=== PATIENT | female | born 1945 | race Caucasian/White ===

== ENCOUNTER 2022-08-18 16:32 | Observation (INO) | payer MEDICARE ==
[2022-08-18 20:05] VITALS: BMI 35.9
[2022-08-18] MEDS ORDERED: Dextrose 5% in Water 1,000 ML IV PRN (21:48)
[2022-08-18] MEDS ORDERED: Dextrose 50% Abboject 50 ML SYRINGE SLOW IVP PRN (21:48)
[2022-08-18] MEDS ORDERED: Acetaminophen 325 MG TAB PO PRN (21:49)
[2022-08-18] MEDS ORDERED: Ondansetron ODT 4 MG TAB PO PRN (21:49)
[2022-08-18] MEDS ORDERED: Ondansetron PF 4 MG/2 ML Vial IVP PRN (21:49)
[2022-08-18] MEDS ORDERED: HumaLOG 300 UNITS/3 ML VIAL SC PRN ×2 (21:53)
[2022-08-18] MEDS ORDERED: Morphine 2 MG/ML VIAL SLOW IVP PRN (21:53)
[2022-08-18] MEDS ORDERED: Nitroglycerin 4.9 GM Bottle SL PRN (21:53)
[2022-08-18] MEDS ORDERED: metFORMIN 500 MG TAB PO SCH (23:45)
[2022-08-19 04:57] LABS: #Basophils 0.1 thou/uL (0.0-0.2); #Eosinphils 0.2 thou/uL (0.0-0.7); #Neutrophils 4.3 thou/uL (1.40-6.50); %Basophils 0.7 % (0.0-1.0); %Eosinophils 2.1 % (0.0-10.0); %Lymphocytes 31.5 % (21.0-51.0); %Monocytes 12.3 % (0.0-10.0); %Neutrophils 53.2 % (42.0-75.0); Hemoglobin 13.5 g/dL (12.0-16.0); Mean Corpuscular HGB CONC 31.5 g/dL (32.0-36.0); Mean Corpuscular Hemoglobin 28.5 pg (27.0-31.0); Mean Corpuscular Volume 90.5 fl (78.0-98.0); Mean Platelet Volume 9.6 fL (7.4-10.4); Platelet Count 243 10x3/uL (130-400); RBC Distribution Width 13.1 % (11.5-14.5); Red Blood Cell (RBC) Count 4.73 mill/uL (4.20-5.40); White Blood Cell (WBC) Count 8.1 10x3/uL (4.8-10.8)
[2022-08-19 05:02] LABS: Hemoglobin A1c 6.8 % (4.0-6.0)
[2022-08-19 05:20] LABS: ALT (SGPT) 11 U/L (8-55); AST (SGOT) 14 U/L (5-34); Albumin 3.7 g/dL (3.4-4.8); Alkaline Phosphatase 61 U/L (40-110); Anion Gap 11 mmol/L (10-20); BUN (Urea Nitrogen) 15 mg/dL (9.8-20.1); Bilirubin, Total 0.4 mg/dL (0.2-1.2); Calc. Creatinine Clearance 84 mL/min (70-130); Calcium 8.7 mg/dL (7.8-10.44); Carbon Dioxide 26 mmol/L (23-31); Cardiac Risk 3.8 (Less than 4.5); Chloride 109 mmol/L (98-107); Cholesterol 173 mg/dl (< 200 Desired); Estimated GFR 76; Globulin 2.3 g/dL (2.4-3.5); Glucose 114 mg/dL (83-110); HDL Cholesterol 46 mg/dL (>60 Neg Risk); LDL Cholesterol, Calculated 94 mg/dL; Potassium 4.2 mmol/L (3.5-5.1); Sodium 142 mmol/L (136-145); Triglycerides 164 mg/dL (Less than 150)
[2022-08-19] MEDS ORDERED: Lisinopril 20 MG TAB PO SCH (09:00)
[2022-08-19] MEDS ORDERED: metFORMIN 500 MG TAB PO SCH ×2 (09:00)
[2022-08-19] MEDS ORDERED: Empagliflozin 10 MG TAB PO SCH (09:00)
[2022-08-19] MEDS ORDERED: Atorvastatin Calcium 20 MG TAB PO SCH (09:00)
[2022-08-19] MEDS ORDERED: Atorvastatin Calcium 10 MG TAB PO SCH ×2 (09:00)
[2022-08-19] MEDS ORDERED: ADENOSINE 60 MG/20 ML SDV ONE (09:44)
[2022-08-19 16:37] VITALS: BP 120/64; TEMP 98.1
[2022-08-19] MEDS ORDERED: HumuLIN 70/30 100 Unit/ ml Vial SC SCH (17:00)
== END 2022-08-19 18:54 | disposition home or self-care (01) ==
LOC: NEURO 18:45
PROVIDERS: ADMIT Emergency Medicine; ATTEND Emergency Medicine
DX: R07.89 Other chest pain (principal); E11.9 Type 2 diabetes mellitus without complications; I10 Essential (primary) hypertension; E78.5 Hyperlipidemia, unspecified; G47.33 Obstructive sleep apnea (adult) (pediatric); Z85.3 Personal history of malignant neoplasm of breast; Z87.891 Personal history of nicotine dependence; Z79.4 Long term (current) use of insulin; Z79.84 Long term (current) use of oral hypoglycemic drugs; Z79.899 Other long term (current) drug therapy; Z88.1 Allergy status to other antibiotic agents; Z88.2 Allergy status to sulfonamides
CPT/HCPCS: 78452; 80061; 82962 ×2; 83036; 93017; 96372; A9500; G0378 ×2; 36415; 36416; 80053; 84443; 85025; J0153; J1650